=== PATIENT | female | born 1990 | race Caucasian/White ===

== ENCOUNTER 2019-08-27 09:37 | Emergency (ER) | payer MEDICAID ==
[~2019-08-27] VITALS: Ht 180.3 cm; Wt 90.0 kg
[2019-08-27 09:39] VITALS: BP 136/84
[2019-08-27] MEDS ORDERED: IBUP-1984 PO (10:23)
[2019-08-27] MEDS ORDERED: PENI500T2 PO (10:23)
== END 2019-08-27 10:36 | disposition home or self-care (01) ==
LOC: ER 09:38
DX: K04.7 Periapical abscess without sinus (principal); L03.211 Cellulitis of face; Z79.2 Long term (current) use of antibiotics; Z79.1 Long term (current) use of non-steroidal anti-inflammatories (NSAID)
CPT/HCPCS: 99283

== ENCOUNTER 2021-08-14 12:35 | Emergency (ER) | payer MEDICAID ==
[~2021-08-14] VITALS: Ht 180.3 cm; Wt 86.4 kg
[2021-08-14 12:49] VITALS: BP 130/66
[2021-08-14] MEDS ORDERED: PENI500T2 PO (12:55)
[2021-08-14] MEDS ORDERED: IBUP-1984 PO (12:56)
== END 2021-08-14 13:16 | disposition home or self-care (01) ==
LOC: ER 12:36
DX: K04.7 Periapical abscess without sinus (principal); R22.0 Localized swelling, mass and lump, head; Z79.2 Long term (current) use of antibiotics; Z79.899 Other long term (current) drug therapy
CPT/HCPCS: 99283

== ENCOUNTER 2021-09-30 14:39 | Emergency (ER) | payer MEDICAID ==
[~2021-09-30] VITALS: Ht 180.3 cm; Wt 90.0 kg
[2021-09-30 14:40] VITALS: BP 144/78
[2021-09-30] MEDS ORDERED: ALBU6.7H9 INH (14:47)
[2021-09-30] MEDS ORDERED: BENZ-38 PO (14:47)
== END 2021-09-30 15:25 | disposition home or self-care (01) ==
LOC: ER 14:39
DX: J06.9 Acute upper respiratory infection, unspecified (principal); B97.89 Other viral agents as the cause of diseases classified elsewhere; Z79.899 Other long term (current) drug therapy
CPT/HCPCS: 99283